=== PATIENT | male | born 1935 | race Caucasian/White ===

== ENCOUNTER 2016-12-31 12:52 | Emergency (ER) | payer MEDICARE ==
[~2016-12-31] VITALS: Ht 170.2 cm; Wt 102.5 kg
[2016-12-31] MEDS ORDERED: LISI-538 PO (13:04)
[2016-12-31] MEDS ORDERED: MAGN250T6 PO (13:04)
[2016-12-31] MEDS ORDERED: DOXA1TAB72 PO (13:04)
[2016-12-31] MEDS ORDERED: SPIR25TA2 PO (13:04)
[2016-12-31] MEDS ORDERED: WARF05TA GT (13:04)
[2016-12-31] MEDS ORDERED: PRAV40TA2 PO (13:04)
[2016-12-31 13:52] LABS: BASO % 0.6 % (0.0-1.0); EOS # 0.4 K/mm3 (0.0-0.50); EOS % 4.5 % (0.0-3.0); LARGE UNSTAINED CELL # 0.1 K/mm3 (0.0-0.4); LARGE UNSTAINED CELL % 1.3 % (0.0-4.0); LYMPH % 11.6 % (24.0-44.0); MEAN CORPUSCULAR HEMOGLOBIN 32.7 pg (27.0-33.0); MEAN CORPUSCULAR HGB CONC 33.2 g/dl (32.0-36.5); MEAN CORPUSCULAR VOLUME 98.5 fl (80.0-96.0); MONO # 0.5 K/mm3 (0.0-0.8); MONO % 6.5 % (0.0-5.0); NEUTROPHILS # 6.1 K/mm3 (1.8-7.7); NEUTROPHILS % 75.5 % (36.0-66.0); PLATELET COUNT, AUTOMATED 164 k/mm3 (150-450); RED CELL DISTRIBUTION WIDTH 14.9 % (11.5-14.5)
[2016-12-31 14:00] LABS: INR 3.32
[2016-12-31 14:21] LABS: ERYTHROCYTE SEDIMENTATION RATE 6 mm/hr (0-20)
[2016-12-31 14:25] LABS: ALBUMIN 3.7 GM/DL (3.2-5.2); ALBUMIN/GLOBULIN RATIO 0.86 (1.00-1.93); BILIRUBIN,DIRECT 0.2 MG/DL (0.0-0.2); BILIRUBIN,TOTAL 0.8 MG/DL (0.2-1.0); CALCIUM LEVEL 8.6 MG/DL (8.8-10.2); CREATININE FOR GFR 1.35 MG/DL (0.70-1.30); MAGNESIUM LEVEL 2.2 MG/DL (1.8-2.4); POTASSIUM SERUM 4.3 MEQ/L (3.5-5.1); URIC ACID 7.9 MG/DL (3.5-7.2)
--- NOTE | 2016-12-31 15:13 | REP ---
Clinical: Swelling. Technique: AP, lateral, bilateral oblique views of the right ankle. Findings: Diffuse soft tissue swelling is appreciated primarily over the lateral malleolus. Vascular calcifications and age-related degenerative changes are appreciated along with moderate calcaneal heal spur. No acute fracture or dislocation. The mortise intact. Impression: Diffuse soft tissue swelling. Signed by Samir Crouch MD 12/31/2016 03:04 P
[2016-12-31 15:29] VITALS: BP 138/89
[2016-12-31] MEDS ORDERED: CLIN150C14 PO (15:29)
[2016-12-31] MEDS ORDERED: COLC1CAP PO (15:29)
[2016-12-31] MEDS ORDERED: COUM1TAB17 PO (15:29)
== END 2016-12-31 15:43 | disposition home or self-care (01) ==
LOC: M ED 12:52
DX: M10.9 Gout, unspecified (principal); L03.115 Cellulitis of right lower limb; Z51.81 Encounter for therapeutic drug level monitoring; I50.9 Heart failure, unspecified; I48.91 Unspecified atrial fibrillation; I25.10 Atherosclerotic heart disease of native coronary artery without angina pectoris; I25.2 Old myocardial infarction; I10 Essential (primary) hypertension; N40.0 Benign prostatic hyperplasia without lower urinary tract symptoms; Z95.0 Presence of cardiac pacemaker; Z79.01 Long term (current) use of anticoagulants; Z79.899 Other long term (current) drug therapy

== ENCOUNTER → 2017-02-07 | Outpatient (CLI) | payer MEDICARE ==
[~2017-02-07] MED LIST: CLIN150C14 PO; COLC1CAP PO; COUM1TAB17 PO; DOXA1TAB72 PO; LISI-538 PO; MAGN250T6 PO; PRAV40TA2 PO; SPIR25TA2 PO; WARF05TA GT
[2017-02-07 13:54] LABS: INR 2.89
== END ==
LOC: M WUC 09:46
PROVIDERS: ATTEND Internal Medicine
DX: Z51.81 Encounter for therapeutic drug level monitoring (principal); Z79.01 Long term (current) use of anticoagulants; I48.91 Unspecified atrial fibrillation

== ENCOUNTER → 2017-02-13 | Outpatient (CLI) | payer MEDICARE ==
[2017-02-13 17:05] LABS: INR 2.27
== END ==
LOC: M WUC 15:19
PROVIDERS: ATTEND Internal Medicine
DX: I48.91 Unspecified atrial fibrillation (principal)

== ENCOUNTER → 2017-02-20 | Outpatient (REF) | payer MEDICARE ==
[2017-02-20 12:21] LABS: INR 1.53
== END ==
LOC: M LAB REF 11:30
PROVIDERS: ATTEND Internal Medicine
DX: I48.91 Unspecified atrial fibrillation (principal)

== ENCOUNTER → 2017-02-28 | Outpatient (REF) | payer MEDICARE ==
[2017-02-28 11:53] LABS: INR 2.26
== END ==
LOC: M LAB REF 11:09
PROVIDERS: ATTEND Internal Medicine
DX: I48.91 Unspecified atrial fibrillation (principal)

== ENCOUNTER → 2017-03-17 | Outpatient (REF) | payer MEDICARE ==
[2017-03-17 11:43] LABS: INR 4.32
== END ==
LOC: M LAB REF 09:40
PROVIDERS: ATTEND Internal Medicine
DX: I48.91 Unspecified atrial fibrillation (principal)

== ENCOUNTER → 2017-03-24 | Outpatient (REF) | payer MEDICARE ==
[2017-03-24 11:52] LABS: INR 1.68
== END ==
LOC: M LABDRAWC 11:20
PROVIDERS: ATTEND Internal Medicine
DX: I48.91 Unspecified atrial fibrillation (principal)

== ENCOUNTER → 2017-03-31 | Outpatient (REF) | payer MEDICARE ==
[2017-03-31 12:20] LABS: INR 1.21
== END ==
LOC: M LAB REF 11:20
PROVIDERS: ATTEND Internal Medicine
DX: I48.91 Unspecified atrial fibrillation (principal)

== ENCOUNTER → 2017-04-08 | Outpatient (REF) | payer MEDICARE ==
[2017-04-08 17:22] LABS: INR 1.77
== END ==
LOC: M LABDRAWC 16:20
PROVIDERS: ATTEND Internal Medicine
DX: I48.91 Unspecified atrial fibrillation (principal)

== ENCOUNTER → 2017-04-15 | Outpatient (REF) | payer MEDICARE ==
[2017-04-15 17:59] LABS: INR 2.32
== END ==
LOC: M LABDRAWC 17:04
PROVIDERS: ATTEND Internal Medicine
DX: I48.91 Unspecified atrial fibrillation (principal)

== ENCOUNTER → 2017-12-03 | Outpatient (REF) | payer MEDICARE ==
[2017-12-03 12:05] LABS: INR 2.07
== END ==
LOC: M LABDRAWC 11:21
DX: I48.91 Unspecified atrial fibrillation (principal); Z79.01 Long term (current) use of anticoagulants
CPT/HCPCS: 85610

== ENCOUNTER → 2018-01-06 | Outpatient (REF) | payer MEDICARE ==
[2018-01-06 17:24] LABS: INR 1.49; PROTHROMBIN TIME 18.3 SECONDS (12.1-14.4)
== END ==
LOC: M LABDRAWC 16:47
DX: I48.91 Unspecified atrial fibrillation (principal); Z79.01 Long term (current) use of anticoagulants
CPT/HCPCS: 85610

== ENCOUNTER → 2021-11-06 | Outpatient (CLI) | payer MEDICARE ==
[~2021-11-06] MED LIST changes: -CLIN150C14 PO; +CLIN150C17 PO; +DOXA1TAB67 PO; -DOXA1TAB72 PO; -LISI-538 PO; +LISI20TA33 PO; +SPIR-10 PO; -SPIR25TA2 PO
== END ==
LOC: M PLAIMG 08:59
PROVIDERS: ATTEND Physician Assistant
DX: R91.8 Other nonspecific abnormal finding of lung field (principal)

== ENCOUNTER → 2021-11-29 | Outpatient (CLI) | payer MEDICARE | LOC: M SLEEP 20:00 | PROVIDERS: ATTEND Physician Assistant | DX: G47.33 Obstructive sleep apnea (adult) (pediatric) (principal) ==

== ENCOUNTER → 2025-02-26 | Outpatient (CLI) | payer MEDICARE ==
[~2025-02-26] MED LIST changes: -PRAV40TA2 PO; +PRAV40TA85 PO
== END ==
LOC: M SLEEP 20:00
PROVIDERS: ATTEND Internal Medicine Pulmonary Disease
DX: G47.33 Obstructive sleep apnea (adult) (pediatric) (principal); G47.61 Periodic limb movement disorder